=== PATIENT | male | born 1995 | race Caucasian/White ===

== ENCOUNTER 2020-12-17 14:12 | Emergency (ER) | payer OTHER ==
[~2020-12-17] VITALS: Wt 99.8 kg
[~2020-12-17 14:12] MED LIST: AMOXICILLIN500 MG PO; FLEXERIL10 MG PO; IBU-8800 MG PO; MEDROL DOSEPAK4 MG PO; MOTRIN800 MG PO; Motrin,Rufen800 MG PO
[2020-12-17] MEDS ORDERED: NAPROXEN250 MG PO (16:05)
[2020-12-17] MEDS ORDERED: TYLENOL325 M1 PO (16:05)
== END 2020-12-17 15:59 | disposition home or self-care (01) ==
LOC: ED 14:12
DX: S92.415A Nondisplaced fracture of proximal phalanx of left great toe, initial encounter for closed fracture (principal); W23.0XXA Caught, crushed, jammed, or pinched between moving objects, initial encounter; Y93.89 Activity, other specified; Y92.89 Other specified places as the place of occurrence of the external cause; Y99.8 Other external cause status

== ENCOUNTER 2022-10-12 20:18 | Emergency (ER) | payer OTHER ==
[~2022-10-12] VITALS: Ht 177.8 cm; Wt 99.8 kg
[~2022-10-12 20:18] MED LIST changes: +NAPROXEN250 MG PO; +TYLENOL325 M1 PO
== END 2022-10-12 21:33 | disposition home or self-care (01) ==
LOC: ED 20:18
DX: L25.5 Unspecified contact dermatitis due to plants, except food (principal); Z79.899 Other long term (current) drug therapy

== ENCOUNTER 2024-03-29 19:52 | Emergency (ER) | payer OTHER ==
[~2024-03-29] VITALS: Ht 177.8 cm; Wt 97.5 kg
[2024-03-29] MEDS ORDERED: PREDNISONE20 M1 PO (20:08)
[2024-03-29] MEDS ORDERED: methylPREDNISolone sod succ 125 MG VIAL IM ONE (20:10)
== END 2024-03-29 20:17 | disposition home or self-care (01) ==
LOC: ED 19:52
DX: L23.7 Allergic contact dermatitis due to plants, except food (principal)